=== PATIENT | male | born 1990 | race African-American/Black ===

== ENCOUNTER 2017-12-09 17:42 | Emergency (ER) | payer BC ==
[2017-12-09] MEDS ORDERED: NA CHLORIDE 0.9% 1,000 ML ONE (18:58)
[2017-12-09] MEDS ORDERED: MORPHINE 4 MG/ML SYR ONE ×2 (18:58→19:44)
[2017-12-09] MEDS ORDERED: ONDANSETRON 4 MG/2 ML VIAL ONE (18:58)
[2017-12-09 19:17] LABS: Absolute Monocytes 0.5 K/uL (0.1-1.3); Absolute Neutrophil 12.9 K/uL (1.8-8.0); Basophils % 0.2 % (0-1.3); Eosinophils % 0.1 % (0-4.4); Hematocrit 44.6 % (39.6-49.0); Lymphocytes % 6.6 % (15.3-44.8); MCH 29.9 pg (27.0-35.0); MCV 87.9 fL (80-100); MPV 8.2 fL (7.6-11.3); Monocytes % 3.4 % (3.3-12.3); RBC Red Blood Cell Count 5.07 M/uL (4.33-5.43)
[2017-12-09 19:27] LABS: Potassium 4.4 mEq/L (3.6-5.0)
[2017-12-09 19:33] LABS: Albumin 4.9 g/dL (3.2-5.5); Bilirubin Direct 0.2 mg/dL (0-0.2); Bilirubin Total 1.2 mg/dL (0.3-1.2)
[2017-12-09 19:53] LABS: Platelet Estimate ADEQ; Urine White Blood Cell Casts OK
[2017-12-09 19:54] LABS: Blood Morphology Comment NOT SEEN (NOT SEEN)
[2017-12-09] MEDS ORDERED: KETOROLAC 30 MG/ML INJ ONE (20:08)
--- NOTE | 2017-12-09 20:16 | RAD REPORT ---
EXAM DESCRIPTION: CT - Abdomen Pelvis W Contrast - 12/09/2017 8:00 pm CLINICAL HISTORY: Abdominal pain with nausea. COMPARISON: none. TECHNIQUE: Computed axial tomography of the abdomen pelvis was obtained. 100 cc Isovue-300 was admin istered intravenously. Oral contrast was not requested which limits evaluation of bowel. All CT scans are performed using dose optimization technique as appropriate and may include automated exposure control or mA/KV adjustment according to patient size. FINDINGS: The liver, spleen, pancreas, adrenal and right kidney appear unremarkable. There is a delay of concentration of contrast within the left kidney. Mild left hydronephrosis is pre sent. Minimal amount of left perirenal fluid is present. The left ureter is dilated. A 2 millimeter c alculus is present within the distal left ureter near the ureteral vesicle junction. There is no evidence of diverticulitis. The colon is decompressed. IMPRESSION: 2 millimeter calculus within the distal left ureter resulting in mild left hydronephrosi s
[2017-12-09] MEDS ORDERED: MAGNESIUM SULFATE 1 gm IVPB 1 GM/100 ML BAG IV ONE (20:46)
[2017-12-09] MEDS ORDERED: TAMSULOSIN 0.4 MG SR CAP ONE (20:46)
[2017-12-09] MEDS ORDERED: HYDROCODONE/APAP 7.5/325 MG TAB ONE (21:35)
--- NOTE | 2017-12-09 21:45 | ER ---
Nurse's Notes [facility] Name: Mariam Cameron Age: 27 yrs Sex: Male : 1990 Arrival Date: 12/09/2017 Time: 17:50 Bed 24 Private MD: Diagnosis: Calculus of ureter-Left Presentation: 12/09 18:20 Presenting complaint: Patient states: Diffuse abdominal pain and nausea since 1000 hb today. Vomit x 1 . Denies diarrhea/fever. Transition of care: patient was not received from another setting of care. Onset of symptoms was December 09, 2017. Care prior to arrival: None. 18:20 Method Of Arrival: Ambulatory hb 18:20 Acuity: ISAAC 3 hb 19:36 Initial Sepsis Screen: Does the patient meet any 2 criteria? No. Patient's initial aj1 sepsis screen is negative. Does the patient have a suspected source of infection? No. Patient's initial sepsis screen is negative. Historical: - Allergies: 18:22 No Known Allergies; hb - Home Meds: 18:22 None [Active]; hb - PMHx: 18:22 None; hb - PSHx: 18:22 None; hb - Immunization history:: Adult Immunizations up to date. - Social history:: Smoking status: Patient uses tobacco products, denies chronic smoking, but will smoke occasionally. Screenin:34 Abuse screen: Denies threats or abuse. Denies injuries from another. Nutritional aj1 screening: No deficits noted. Tuberculosis screening: No symptoms or risk factors identified. 22:18 Fall Risk None identified. aj1 Assessment: 18:34 General: Appears in no apparent distress. uncomfortable, Behavior is calm, cooperative, aj1 appropriate for age. Pain: Complains of pain in left lower quadrant Pain radiates to abdomen diffusely Pain currently is 9 out of 10 on a pain scale. Quality of pain is described as sharp, Pain began at 1000 this am. Neuro: Level of Consciousness is awake, alert, obeys commands, Oriented to person, place, time, situation, Speech is normal, Facial symmetry appears normal. Cardiovascular: Patient's skin is warm and dry. Respiratory: Airway is patent Respiratory effort is even, unlabored, Respiratory pattern is regular, symmetrical. GI: Abdomen is flat, non-distended, Bowel sounds present X 4 quads. Abd is non tender X 4 quads Reports nausea, vomiting, Patient currently denies diarrhea. : No signs and/or symptoms were reported regarding the genitourinary system. EENT: No signs and/or symptoms were reported regarding the EENT system. Derm: No signs and/or symptoms reported regarding the dermatologic system. Skin is pink, warm \T\ dry. normal. Musculoskeletal: No signs and/or symptoms reported regarding the musculoskeletal system. Circulation, motion, and sensation intact. 19:36 Reassessment: Patient appears in no apparent distress at this time. No changes from aj1 previously documented assessment. Patient and/or family updated on plan of care and expected duration. Pain level reassessed. Patient is alert, oriented x 3, equal unlabored respirations, skin warm/dry/pink. 19:37 Reassessment: Patient states that he is still hurting and the morphine did not help at aj1 all. Notified FABIAN Loomis. 20:10 Reassessment: Patient states that he is still hurting, the morphine has not helped at aj1 all and his pain is now worse. Notified FABIAN Loomis. Order received. 20:33 Reassessment: Patient resting comfortably, opens eyes to verbal stimuli. Respirations aj1 even and unlabored. Skin pink warm and dry. 21:30 Reassessment: Patient appears in no apparent distress at this time. No changes from aj1 previously documented assessment. Patient and/or family updated on plan of care and expected duration. Pain level reassessed. Patient is alert, oriented x 3, equal unlabored respirations, skin warm/dry/pink. 21:38 Reassessment: Patient states that his pain is coming back and he would like something aj1 else for pain. Notified FABIAN Loomis. Order received. 22:17 Reassessment: Patient appears in no apparent distress at this time. No changes from aj1 previously documented assessment. Patient and/or family updated on plan of care and expected duration. Pain level reassessed. Patient is alert, oriented x 3, equal unlabored respirations, skin warm/dry/pink. Patient states that he is feeling much better. Vital Signs: 18:21 BP 140 / 89; Pulse 86; Resp 16; Temp 97.9(TE); Pulse Ox 100% on R/A; Weight 97.52 kg; hb Height 6 ft. (182.88 cm); Pain 9/10; 19:15 BP 133 / 85; Pulse 87; Resp 18; Pulse Ox 97% on R/A; aj1 20:15 BP 129 / 75; Pulse 80; Resp 16; Pulse Ox 96% on R/A; aj1 21:47 BP 136 / 81; Pulse 76; Resp 18; Pulse Ox 100% on R/A; aj1 18:21 Body Mass Index 29.16 (97.52 kg, 182.88 cm) hb ED Course: 17:50 Patient arrived in ED. sb2 18:21 Triage completed. hb 18:21 Arm band placed on right wrist. hb 18:23 Angeles Lema, RN is Primary Nurse. aj1 18:25 Ramiro Marino PA is PHCP. cp 18:25 Roland Leonardo MD is Attending Physician. cp 18:34 Patient has correct armband on for positive identification. Bed in low position. Call aj1 light in reach. Side rails up X 1. 18:34 No provider procedures requiring assistance completed. Initial lab(s) drawn, by oh, aj1 sent to lab. Inserted saline lock: 20 gauge in right antecubital area, using aseptic technique. Blood collected. 19:[address] via wheelchair. nj 20:00 CT Abd/Pelvis - W/Contrast: no oral contrast In Process Unspecified. EDMS 20:01 CT completed. Patient tolerated procedure well. Patient moved back from CT. vm2 21:44 Arik Chacon MD is Referral Physician. cp 22:18 IV discontinued, intact, bleeding controlled, No redness/swelling at site. Pressure aj1 dressing applied. Administered Medications: 19:12 Drug: morphine 4 mg Route: IVP; Site: right antecubital; aj1 19:48 Follow up: Response: No adverse reaction aj1 19:12 Drug: Zofran 4 mg Route: IVP; Site: right antecubital; aj1 19:48 Follow up: Response: No adverse reaction aj1 19:12 Drug: NS 0.9% 1000 ml Route: IV; Rate: 1 bolus; Site: right antecubital; aj1 22:00 Follow up: IV Status: Completed infusion; IV Intake: 1000ml aj1 19:47 Drug: morphine 4 mg Route: IVP; Site: right antecubital; aj1 20:11 Follow up: Response: No adverse reaction aj1 20:11 Drug: TORadol 30 mg Route: IVP; Site: right antecubital; aj1 20:59 Follow up: Response: No adverse reaction aj1 20:58 Drug: Magnesium Sulfate 1 grams Route: IVPB; Infused Over: 1 hrs; Site: right aj1 antecubital; 22:00 Follow up: IV Status: Completed infusion; IV Intake: 100ml aj1 20:59 Drug: Flomax 0.4 mg Route: PO; aj1 21:39 Follow up: Response: No adverse reaction aj1 21:40 Drug: [place] (7.5 mg-325 mg) 1 tabs Route: PO; aj1 21:47 Follow up: Response: No adverse reaction aj1 22:16 Drug: Rocephin - (cefTRIAXone) 1 grams Route: IVPB; Infused Over: 30 mins; Site: right aj1 antecubital; 22:16 Follow up: IV Status: Completed infusion aj1 Intake: 22:00 IV: 100ml; Total: 100ml. aj1 22:00 IV: 1000ml; Total: 1100ml. aj1 Outcome: 21:45 Discharge ordered by MD. cp 22:18 Discharged to home ambulatory. aj1 22:18 Condition: good 22:18 Discharge instructions given to patient, Instructed on discharge instructions, follow up and referral plans. no drinking with medication, no driving heavy equipment, medication usage, Demonstrated understanding of instructions, follow-up care, medications, Prescriptions given X 4. 22:19 Patient left the ED. aj1 Signatures: Dispatcher [employer] EDAngeles Cardoza RN RN aj1 Ramiro Marino PA PA cp Baxter, Heather, RN RN hb Jordan, Nathan nj McGuire, Victoria [facility] Noemi Hernandez2 Corrections: (The following items were deleted from the chart) 19:37 19:37 Reassessment: Patient states that he is still hurting and the morphine did not aj1 help at all. 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 aj1 aj1
--- NOTE | 2017-12-09 21:45 | EDPHYS ---
Physician Documentation [facility] Name: Mariam Cameron Age: 27 yrs Sex: Male : 1990 Arrival Date: 12/09/2017 Time: 17:50 Bed 24 Private MD: ED Physician Roland Leonardo HPI: 12/09 18:48 This 27 yrs old Black Male presents to ER via Ambulatory with complaints of Abdominal cp Pain. 18:48 The patient presents with abdominal pain that is diffuse. Onset: The symptoms/episode cp began/occurred today, at 10:00. The symptoms radiate to the left flank, left groin. Associated signs and symptoms: Pertinent positives: nausea and vomiting, Pertinent negatives: blood in stools, diarrhea, dysuria, fever, hematuria. The symptoms are described as constant. Historical: - Allergies: 18:22 No Known Allergies; hb - Home Meds: 18:22 None [Active]; hb - PMHx: 18:22 None; hb - PSHx: 18:22 None; hb - Immunization history:: Adult Immunizations up to date. - Social history:: Smoking status: Patient uses tobacco products, denies chronic smoking, but will smoke occasionally. ROS: 18:55 Constitutional: Negative for body aches, chills, fever, poor PO intake. cp 18:55 Eyes: Negative for injury, pain, redness, and discharge. cp 18:55 ENT: Negative for drainage from ear(s), ear pain, sore throat, difficulty swallowing, difficulty handling secretions. 18:55 Cardiovascular: Negative for chest pain, edema, palpitations. 18:55 Respiratory: Negative for cough, shortness of breath, wheezing. 18:55 Abdomen/GI: Positive for abdominal pain, nausea and vomiting, Negative for diarrhea, constipation, anorexia, black/tarry stool, rectal bleeding. 18:55 Back: Positive for flank pain, on the left. 18:55 : Negative for urinary symptoms. 18:55 Skin: Negative for cellulitis, rash. 18:55 Neuro: Negative for altered mental status, headache, weakness. 18:55 All other systems are negative. Exam: 19:00 Head/Face: Normocephalic, atraumatic. Eyes: Pupils equal round and reactive to light, cp extra-ocular motions intact. Lids and lashes normal. Conjunctiva and sclera are non-icteric and not injected. Cornea within normal limits. Periorbital areas with no swelling, redness, or edema. ENT: Nares patent. No nasal discharge, no septal abnormalities noted. Tympanic membranes are normal and external auditory canals are clear. Oropharynx with no redness, swelling, or masses, exudates, or evidence of obstruction, uvula midline. Mucous membranes moist. Neck: Trachea midline, no thyromegaly or masses palpated, and no cervical lymphadenopathy. Supple, full range of motion without nuchal rigidity, or vertebral point tenderness. No Meningismus. Chest/axilla: Normal chest wall appearance and motion. Nontender with no deformity. No lesions are appreciated. 19:00 Constitutional: The patient appears alert, awake, non-toxic, well developed, well nourished, uncomfortable. 19:00 Cardiovascular: Rate: normal, Rhythm: regular, Edema: is not appreciated, JVD: is not cp appreciated. 19:00 Respiratory: the patient does not display signs of respiratory distress, Respirations: normal, no use of accessory muscles, no retractions, no splinting, no tachypnea, labored breathing, is not present, Breath sounds: are clear throughout, no decreased breath sounds, no stridor, no wheezing. 19:00 Abdomen/GI: Inspection: abdomen appears normal, Bowel sounds: active, all quadrants, cp Palpation: soft, in all quadrants, moderate abdominal tenderness, in the abdomen diffusely, rebound tenderness, is not appreciated, voluntary guarding, is not appreciated, involuntary guarding, is not appreciated. 19:00 Back: ROM is normal. 19:00 Skin: cellulitis, is not appreciated, no rash present. cp Vital Signs: 18:21 BP 140 / 89; Pulse 86; Resp 16; Temp 97.9(TE); Pulse Ox 100% on R/A; Weight 97.52 kg; hb Height 6 ft. (182.88 cm); Pain 9/10; 19:15 BP 133 / 85; Pulse 87; Resp 18; Pulse Ox 97% on R/A; aj1 20:15 BP 129 / 75; Pulse 80; Resp 16; Pulse Ox 96% on R/A; aj1 21:47 BP 136 / 81; Pulse 76; Resp 18; Pulse Ox 100% on R/A; aj1 18:21 Body Mass Index 29.16 (97.52 kg, 182.88 cm) hb MDM: 18:25 Patient medically screened. cp 19:00 Differential diagnosis: appendicitis, bowel obstruction, cholecystitis, Cholelithiasis, cp diverticulitis, gastritis, non-specific abd pain, pancreatitis, Pyelonephritis, Ureterolithiasis, urinary tract infection. 21:44 Data reviewed: vital signs, nurses notes, lab test result(s), radiologic studies, CT cp scan. 12/09 18:41 Order name: Amylase, Serum cp 12/09 18:41 Order name: Basic Metabolic Panel cp 12/09 18:41 Order name: CBC with Diff; Complete Time: 20:15 cp 12/09 20:15 Interpretation: Normal except: WBC 14.4; SCOTT% 89.7; LYM% 6.6; NEUT A 12.9. cp 12/09 18:41 Order name: Creatinine for Radiology; Complete Time: 19:42 cp 12/09 20:32 Interpretation: Normal except: CRE 1.37. cp 12/09 18:41 Order name: Hepatic Function; Complete Time: 19:42 cp 12/09 20:32 Interpretation: Normal except: ALK 31. cp 12/09 18:41 Order name: Lipase; Complete Time: 19:42 cp 12/09 20:32 Interpretation: Abnormal: LIP 60. cp 12/09 18:41 Order name: Urine Microscopic Only cp 12/09 18:42 Order name: Amylase Level; Complete Time: 19:42 EDMS 12/09 18:42 Order name: Basic Metabolic Panel; Complete Time: 19:42 EDMS 12/09 20:32 Interpretation: Normal except: CRE 1.32; GFR 78. cp 12/09 19:20 Order name: CBC Smear Scan; Complete Time: 20:15 EDMS 12/09 19:44 Order name: CT Abd/Pelvis - W/Contrast: no oral contrast; Complete Time: 20:21 cp 12/09 21:45 Order name: Urine Dipstick--Ancillary (enter results) 12/09 18:41 Order name: IV Saline Lock; Complete Time: 18:56 cp 12/09 18:41 Order name: Labs collected and sent; Complete Time: 18:56 cp 12/09 18:41 Order name: Urine Dipstick-Ancillary (obtain specimen); Complete Time: 21:48 cp Administered Medications: 19:12 Drug: morphine 4 mg Route: IVP; Site: right antecubital; aj1 19:48 Follow up: Response: No adverse reaction aj1 19:12 Drug: Zofran 4 mg Route: IVP; Site: right antecubital; aj1 19:48 Follow up: Response: No adverse reaction aj1 19:12 Drug: NS 0.9% 1000 ml Route: IV; Rate: 1 bolus; Site: right antecubital; aj1 22:00 Follow up: IV Status: Completed infusion; IV Intake: 1000ml aj1 19:47 Drug: morphine 4 mg Route: IVP; Site: right antecubital; aj1 20:11 Follow up: Response: No adverse reaction aj1 20:11 Drug: TORadol 30 mg Route: IVP; Site: right antecubital; aj1 20:59 Follow up: Response: No adverse reaction aj1 20:58 Drug: Magnesium Sulfate 1 grams Route: IVPB; Infused Over: 1 hrs; Site: right aj antecubital; 22:00 Follow up: IV Status: Completed infusion; IV Intake: 100ml aj1 20:59 Drug: Flomax 0.4 mg Route: PO; aj1 21:39 Follow up: Response: No adverse reaction aj1 21:40 Drug: [place] (7.5 mg-325 mg) 1 tabs Route: PO; aj1 21:47 Follow up: Response: No adverse reaction aj1 22:16 Drug: Rocephin - (cefTRIAXone) 1 grams Route: IVPB; Infused Over: 30 mins; Site: right [facility] antecubital; 22:16 Follow up: IV Status: Completed infusion aj1 Disposition: 12/09/17 21:45 Discharged to Home. Impression: Calculus of ureter - Left. - Condition is Stable. - Discharge Instructions: Kidney Stones, Ureteral Colic. - Prescriptions for Tylenol- Codeine #3 300-30 mg Oral Tablet - take 2 tablets by ORAL route every 6 hours As needed; 20 tablet. Zofran 4 mg Oral Tablet - take 1 tablet by ORAL route every 12 hours As needed; 20 tablet. Flomax 0.4 mg Oral Capsule, Sust. Release 24 hr - take 1 capsule by ORAL route once daily As needed 1/2 hour following the same meal each day; 5 capsule. Cipro 500 mg Oral Tablet - take 1 tablet by ORAL route every 12 hours for 7 days; 14 tablet. - Work release form, Medication Reconciliation Form, Thank You Letter, Antibiotic Education, Prescription Opioid Use form. - Follow up: Arik Chacon MD; When: 2 - 3 days; Reason: if pain continues. - Problem is new. - Symptoms have improved. Addendum: 12/23/2017 13:37 Co-signature as Attending Physician, Roland Leonardo MD I agree with the assessment and k plan of care. Signatures: Dispatcher [employer] EDAR Angeles Lema RN RN aj1 Roland Leonardo MD MD [facility] Ramiro Marino PA PA cp Glory Aguilar RN RN Corrections: (The following items were deleted from the chart) 12/09 22:19 21:45 12/09/2017 21:45 Discharged to Home. Impression: Calculus of ureter - Left. aj1 Condition is Stable. Forms are Medication Reconciliation Form, Thank You Letter, Antibiotic Education, Prescription Opioid Use. Follow up: Arik Chacon; When: 2 - 3 days; Reason: if pain continues. Problem is new. Symptoms have improved. cp
[2017-12-09] MEDS ORDERED: CEFTRIAXONE/SWI 1gm 1 GM/10 ML SYR ONE (22:03)
[2017-12-09 23:44] LABS: Urine Bacteria <20 /HPF (NONE SEEN); Urine Culture Reflex Order NOT NEEDED
[2017-12-09 23:45] LABS: Urine Blood 1+ (NEG); Urine Glucose NEGATIVE (NEG); Urine Protein NEGATIVE (NEG)
== END 2017-12-09 22:19 | disposition home or self-care (01) ==
LOC: ER 17:42
DX: N20.1 Calculus of ureter (principal); Z72.0 Tobacco use
CPT/HCPCS: 36415; 74177; 80048; 80076; 81003; 81015; 82150; 83690; 85025; 96361; 96365; 96375; 99284; J0696; J2405; J3475; J7030; Q9967